=== PATIENT | male | born 1930 | race Caucasian/White ===

== ENCOUNTER 2016-12-21 07:06 | Outpatient (CLI) | payer MEDICARE, BC ==
[2016-12-21] VITALS (13 sets, daily range): BP systolic 117–150; BP diastolic 56–69; PULSE 60–72; RESP 12–21; TEMP 96.7–98.6; O2SAT 95–98; Ht 172.7 cm; Wt 59.8 kg
[~2016-12-21] VITALS: Ht 172.7 cm; Wt 59.8 kg
[~2016-12-21 07:06] MED LIST: AMLO10TA2 PO; BENA20TA3 PO; CLOP75TA33 PO; METF500T4 PO; NITR1PAT TD; OMEP-29 PO; SIMV40TA73 PO
--- NOTE | 2016-12-21 07:24 | NUR ---
ADMIT PT ADMITTED TO ROOM 118 AT THIS TIME VIA WHEELCHAIR. PT POSITIONED SELF IN BED. PT USES CANE TO TRANSFER/AMBULATE. PT'S ELENA AND DAUGHTER PRESENT UPON ADMIT. PT ALERT AND ORIENTED. WILL CONTINUE TO MONITOR CLOSELY.
[2016-12-21] MEDS ORDERED: NORMAL SALINE 1,000 ML IV SCH ×2 (07:30→14:36)
[2016-12-21 07:56] LABS: BASOPHILS % (AUTO) 0.4 % (0-2); EOSINOPHILS # (AUTO) 0.1 T/MM3 (0-0.5); EOSINOPHILS % (AUTO) 1.3 % (0-4); HCT - HEMATOCRIT 43.1 % (41-53); HGB - HEMOGLOBIN 14.8 GM/DL (13.5-17.5); IMMATURE GRANULOCYTE # (AUTO) 0.01 T/MM3 (0.00-0.03); IMMATURE GRANULOCYTE % (AUTO) 0.1 % (0.0-0.5); LYMPHOCYTES # (AUTO) 1.8 T/MM3 (1-4.8); MEAN CORPUSCULAR HGB 32.4 UUG (26-34); MEAN CORPUSCULAR HGB CONC(MCHC 34.3 GM/DL (31-37); MEAN CORPUSCULAR VOLUME 94.3 UM3 (80-100); MEAN PLATELET VOLUME 8.3 UM3 (9.4-12.4); MONOCYTES # (AUTO) 0.6 T/MM3 (0-0.8); MONOCYTES % (AUTO) 8.3 % (0-9.0); NEUTROPHILS #(AUTO)-ABSOLUTE 4.4 T/MM3 (1.8-7.7); NEUTROPHILS % (AUTO) 63.9 % (33-66); RED BLOOD COUNT 4.57 M/MM3 (4.50-5.90); WBC - WHITE BLOOD COUNT 6.9 T/MM3 (4.5-11.0)
[2016-12-21 08:08] LABS: ALBUMIN 4.3 G/DL (3.5-5.0); ALBUMIN/GLOBULIN RATIO 1.2 RATIO (1.1-2.2); ALKALINE PHOSPHATASE 78 U/L (38-126); ALT (SGPT) 34 U/L (21-72); ANION GAP 13 MEQ/L (5-15); AST (SGOT) 21 U/L (17-59); BUN/CREATININE RATIO 19 RATIO (6-26); CALCIUM 9.5 MG/DL (8.4-10.2); CHLORIDE 100 MEQ/L (98-107); CO2 - CARBON DIOXIDE 28 MEQ/L (22-30); GLOMERULAR FILTRATION RATE 71; GLUCOSE 101 MG/DL (75-110); POTASSIUM 4.3 MEQ/L (3.6-5); SODIUM 141 MEQ/L (134-144)
--- NOTE | 2016-12-21 10:33 | NUR ---
WINDY CM VISITED PT AND FAMILY. CM EXPLAINED ROLE AND PROVIDED CONTACT INFORMATION. PT PLANS TO RETURN HOME POST HOSPITAL STAY. PT DAUGHTER STATES SHE IS A NURSE AND CAN ASSIST PT IF NEEDS ARISE. PT IS AWARE TO CONTACT CM IF NEEDS ARISE.
[2016-12-21] MEDS ORDERED: CEFAZOLIN 1 GRAM INJECTION ONE (10:40)
[2016-12-21] MEDS ORDERED: FENTANYL 100mcg/2ml INJECTION ONE (10:40)
[2016-12-21] MEDS ORDERED: WATER FOR INJECTION 20 ML ONE (10:40)
[2016-12-21] MEDS ORDERED: LIDOCAINE 1% (10mg/ml) 30ml SDV ONE (10:41)
[2016-12-21] MEDS ORDERED: SALINE FLUSH 10ml SYRINGE ONE ×2 (10:41→11:13)
[2016-12-21] MEDS ORDERED: BACITRACIN INJ. 50,000 UNITS VL ONE (10:41)
[2016-12-21] MEDS ORDERED: MIDAZOLAM 2mg/2ml INJECTION ONE (10:41)
--- NOTE | 2016-12-21 10:42 | NUR ---
TO SALES CONTRACTOR PT TRANSPORTED TO [facility] AT THIS TIME VIA CART AND ACCOMPANIED BY DOMO INMAN RN. PT'S , DAUGHTER AND GRANDSON PRESENT UPON TRANSFER WELL. PT VOIDED PRIOR TO TRANSFER. INFORMED CONSENT OBTAINED. VITAL SIGNS STABLE ON ROOM AIR. PERSONAL BELONGINGS REMAIN IN ROOM. WILL CONTINUE TO MONITOR.
[2016-12-21] MEDS ORDERED: IOHEXOL 350mg/ml 200ml BOTTLE ONE (11:04)
--- NOTE | 2016-12-21 12:25 | NUR ---
RETURN PT RETURNED TO ROOM 118 AT THIS TIME VIA CART. PT TRANSFERRED SELF FROM CART TO BED. HOB ELEVATED SLIGHTLY. FAMILY PRESENT IN ROOM UPON RETURN. PT AWAKE AND ALERT X3. VITAL SIGNS STABLE ON ROOM AIR. WILL CONTINUE TO MONITOR CLOSELY.
[2016-12-21] MEDS ORDERED: ACETAMINOPHEN 325 MG TABLET PO PRN ×2 (13:00→14:45)
--- NOTE | 2016-12-21 14:36 | NUR ---
DM Screen Diet: Cardiac CC [address] [place] with an activity factor of 1.3 and an injury factor of 1.0 calorie needs are ~ 1616 to maintain current weight The patient's is instrumental in managing the patient's diabetes care behaviors.The patient states he takes his BS every night, and it typically ranges from 100-125. He doesn't follow a low-carb diet, but tries to stay away from sweets. The patient states he takes Metformin. If the weather is nice, the patient states he will walk a mile to his mailbox for physical activity. The patient is interested in outpatient diabetes counseling but will contact on his own when he is ready. RD available @ [phone] Addendum: 12/21/16 at [address] Student charting reviewed by Fleet Sales Manager.
[2016-12-21] MEDS ORDERED: BISACODYL 5 MG E.C. TABLET PO PRN (14:45)
[2016-12-21] MEDS ORDERED: CEFAZOLIN 1 GRAM INJECTION IV SCH ×2 (14:45→19:00)
[2016-12-21] MEDS ORDERED: MAG-AL + SIM LIQUID 30 ML UDC PO PRN (14:45)
[2016-12-21] MEDS ORDERED: OXYCODONE/APAP 5mg/325mg TABLET PO PRN (14:45)
--- NOTE | 2016-12-21 15:22 | DI ---
Indication: ITS.REASON: post ppm PROCEDURE: CHEST 1 VIEW: Encounter: Initial Comparison: October 22, 2011 Findings: Poststernotomy changes. New left dual lead cardiac pacemaker with right atrial and right ventricular leads. No evidence of lead fracture or discontinuity. Overlying monitoring leads. No visible pneumothorax or obvious pleural effusion. Lungs are hypoinflated. Heart size is stable. Mediastinal contours and pulmonary vascularity are within normal limits. Impression: No visible pneumothorax. .
[2016-12-21] MEDS: CEFAZOLIN 1 G in NORMAL SALINE 100 ML IV SCH (18:35)
[2016-12-21] MEDS ORDERED: NITROGLYCERIN PATCH REMOVAL TD SCH (21:00)
[2016-12-22 00:36] VITALS: BP 123/60; PULSE 61; RESP 18; TEMP 97.9; O2SAT 96
--- NOTE | 2016-12-22 01:11 | NUR ---
Chart Check 24 hour chart check completed
[2016-12-22] MEDS: CEFAZOLIN 1 G in NORMAL SALINE 100 ML IV SCH (03:31)
[2016-12-22 03:36] VITALS: BP 117/61; PULSE 59; RESP 16; TEMP 97.7; O2SAT 97
[2016-12-22 05:09] LABS: BASOPHILS % (AUTO) 0.3 % (0-2); EOSINOPHILS # (AUTO) 0.1 T/MM3 (0-0.5); EOSINOPHILS % (AUTO) 1.4 % (0-4); HCT - HEMATOCRIT 37.6 % (41-53); HGB - HEMOGLOBIN 12.6 GM/DL (13.5-17.5); IMMATURE GRANULOCYTE # (AUTO) 0.01 T/MM3 (0.00-0.03); IMMATURE GRANULOCYTE % (AUTO) 0.1 % (0.0-0.5); LYMPHOCYTES # (AUTO) 1.5 T/MM3 (1-4.8); MEAN CORPUSCULAR HGB 31.7 UUG (26-34); MEAN CORPUSCULAR HGB CONC(MCHC 33.5 GM/DL (31-37); MEAN CORPUSCULAR VOLUME 94.7 UM3 (80-100); MEAN PLATELET VOLUME 8.8 UM3 (9.4-12.4); MONOCYTES # (AUTO) 0.8 T/MM3 (0-0.8); MONOCYTES % (AUTO) 11.4 % (0-9.0); NEUTROPHILS #(AUTO)-ABSOLUTE 4.8 T/MM3 (1.8-7.7); NEUTROPHILS % (AUTO) 66.8 % (33-66); RED BLOOD COUNT 3.97 M/MM3 (4.50-5.90); WBC - WHITE BLOOD COUNT 7.3 T/MM3 (4.5-11.0)
--- NOTE | 2016-12-22 05:15 | NUR ---
SUMMARY AWAKE MOST OF THE NIGHT. REPORTS TROUBLES WITH INSOMNIA AT HOME. MEDICATED WITH TYLENOL FOR COMPLAINTS OF 3/10 LEFT SHOULDER PAIN. SLIGHT AMOUNT OF BRUISING INFERIOR TO LEFT CHEST WALL DRESSING. SITE OTHERWISE UNREMARKABLE. SLING IN PLACE. NO CHANGE IN ASSESSMENT. WILL CONTINUE TO MONITOR.
[2016-12-22 05:16] LABS: ANION GAP 10 MEQ/L (5-15); BUN/CREATININE RATIO 21 RATIO (6-26); CALCIUM 9.1 MG/DL (8.4-10.2); CHLORIDE 103 MEQ/L (98-107); CO2 - CARBON DIOXIDE 26 MEQ/L (22-30); CREATININE 0.9 MG/DL (0.8-1.5); GLOMERULAR FILTRATION RATE 80; GLUCOSE 91 MG/DL (75-110); POTASSIUM 4.4 MEQ/L (3.6-5); SODIUM 139 MEQ/L (134-144)
[2016-12-22] MEDS ORDERED: --POM--OMEPRAZOLE 20 MG CAPSULE PO SCH (06:30)
[2016-12-22] MEDS ORDERED: METFORMIN 500 MG PO SCH (08:00)
[2016-12-22 08:03] VITALS: BP 146/66; PULSE 61; RESP 17; TEMP 98.2; O2SAT 98
[2016-12-22 08:17] VITALS: PULSE 61; RESP 17
--- NOTE | 2016-12-22 08:53 | DI ---
INDICATION: ITS.REASON: post ppm PROCEDURE: CHEST 2-VIEWS UPRIGHT (PA \T\ LAT) Encounter: Initial COMPARISON: December 21, 2016 FINDINGS: Prior CABG. Left cardiac pacemaker is stable in position. No evidence of lead fracture. No pneumothorax. Lungs are stable in appearance with hypoinflation. Cardiomediastinal contours are stable. Exaggerated thoracic kyphosis with multiple lower thoracic and upper lumbar compression fractures, likely chronic. Impression: Stable appearance of the left pacemaker without evidence of pneumothorax. .
[2016-12-22] MEDS ORDERED: --POM--CLOPIDOGREL 75 MG TABLET PO SCH (09:00)
[2016-12-22] MEDS ORDERED: NITROGLYCERIN 0.1 MG/HR TD SCH (09:00)
[2016-12-22] MEDS ORDERED: SIMVASTATIN 20 MG PO SCH (09:00)
[2016-12-22] MEDS ORDERED: ATENOLOL 25 MG TABLET PO SCH (09:00)
[2016-12-22] MEDS ORDERED: --POM--AMLODIPINE 10 MG TABLET PO SCH (09:00)
[2016-12-22] MEDS ORDERED: BENAZEPRIL 20 MG PO SCH (09:00)
--- NOTE | 2016-12-22 09:28 | NUR ---
CM CM IN TO VISIT PATIENT, HE IS A&O. NO FAMILY IS PRESENT. PATIENT WILL DISCHARGE HOME, DENIES NEEDS. CM CONTACT INFORMATION PROVIDED.
[2016-12-22 11:56] VITALS: BP 131/65; PULSE 60; RESP 20; TEMP 97.7; O2SAT 96
[2016-12-22] MEDS ORDERED: MINO100C43 PO (16:02)
--- NOTE | 2016-12-22 16:07 | PNPDOC ---
Subjective Date DATE: 12/22/16 TIME: 16:03 Subjective feeling well . much more alert and talkative per family . no incsiomnal [pain . no cp or dyspnea.has been walking to [place] w cane. pt and family are talking about better nutrition and f/u on wt w PCP. I stressed the importance of nutricious diet wityhnadquate protein x 2wks Objective Vital Signs Vital signs Vital Signs 12/22/16 12/22/16 12/22/16 08:03 08:17 11:56 Temp 98.2 97.7 Pulse 61 61 60 Resp B/P 146/66 131/65 Pulse Ox 98 96 O2 Delivery Room Air Room Air Telemetry Rhythm: Sinus Rhythm, Apaced Height (Feet): 5 Height (Inches): 8.00 Weight (Kilograms): 59.800 General Alert, Orientated x 3, No Acute Distress, Able to walk Eyes (Brief) EOMI, PERRL, NOT FOUND: trauma ENMT (Brief) mucosa moist Neck (Brief) NOT FOUND: JVD Respiratory (Brief) clear all shipley, equal bilaterally Cardiovascular (Brief) regular rate, regular rhythm, NOT FOUND: pedal edema Capillary Refill: <2 sec Abdomen (Brief) BS normo active x4, soft, NOT FOUND: distended, tender (Brief) NOT FOUND: deformity Extremities (Brief) Extremity : Extremity Finding: NOT FOUND: clubbing, cyanosis, edema Lymphatic (Brief) NOT FOUND: lymphedema Musculoskeletal (Brief) NOT FOUND: deformity Integumentary (Brief) dry (PPM site looks graet and dry, no erythema or d/c), pink, warm Neurologic (Brief) FOUND: cranial 2-12 intact, motor, NOT FOUND: facial droop, ptosis Psychiatric (Brief) alert, attentive, normal affect, oriented Laboratory Laboratory Laboratory Tests 12/22/16 04:23 Laboratory Tests 12/22/16 04:23 Radiology CXR good lead positioon no PTX. post PPm electronic check looks excellent Assessment & Plan Assessment SB symptomatioc s/p PPM insertion doing well. restarting BB and plavix d/c hoem .post ppm teaching provided SHERRI MCBRIDE MD December 22, 2016 16:06
[2016-12-22] MEDS ORDERED: ATEN25TA PO (16:08)
--- NOTE | 2016-12-22 16:17 | NUR ---
DISCHARGE PT DISCHARGED TO HOME AT THIS TIME IN THE COMPANY OF HIS AND SON IN LAW. PT TRANSPORTED TO THE FRONT ENTRANCE BY WHEELCHAIR AND ACCOMPANIED BY STAFF. DISCHARGE INSTRUCTIONS INCLUDING DIET, ACTIVITY, MEDICATIONS, FOLLOW UP APPOINTMENT, REPORTABLE S/S, AND [facility] PACEMAKER INSTRUCTIONS GIVEN AND REVIEWED WITH PATIENT. SCRIPTS FOR MINOCIN AND ATENOLOL CALLED INTO PHARMACY IN [place] PER PT REQUEST. PT VERBALIZED UNDERSTANDING OF THESE INSTRUCTIONS AND HAD NO FURTHER QUESTIONS. IVL DISCONTINUED. ARMBAND REMOVED. PERSONAL BELONGINGS AND HOME MEDICATIONS RETURNED.
[2016-12-22] MEDS ORDERED: MINOCYCLINE 100 MG CAPSULE PO SCH (17:00)
== END 2016-12-22 16:17 | disposition home or self-care (01) ==
LOC: CATH 07:06 → SRG 07:08 → CATH 12-22 16:17
PROVIDERS: ATTEND Internal Medicine Cardiovascular Disease
DX: I49.5 Sick sinus syndrome (principal); I25.119 Atherosclerotic heart disease of native coronary artery with unspecified angina pectoris; Z95.1 Presence of aortocoronary bypass graft; I10 Essential (primary) hypertension; E78.5 Hyperlipidemia, unspecified; E11.9 Type 2 diabetes mellitus without complications; K44.9 Diaphragmatic hernia without obstruction or gangrene; Z79.02 Long term (current) use of antithrombotics/antiplatelets; Z79.84 Long term (current) use of oral hypoglycemic drugs; Z79.899 Other long term (current) drug therapy
CPT/HCPCS: 33208; 36415; 71010; 71020; 80048; 80053; 82948; 85025; 93005; A9270; C1785; C1898; J0690; J2250; J3010; J7030; J7050; L3650; Q9967